=== PATIENT | female | born 2000 | race Caucasian/White ===

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

== ENCOUNTER 2019-07-19 18:38 | Emergency (ER) | payer SELFPAY ==
[~2019-07-19] VITALS: Ht 165.1 cm; Wt 63.6 kg
[2019-07-19 18:41] VITALS: BP 117/82
[2019-07-19] MEDS ORDERED: IBUPROFEN 600 MG TABLET PO ONE (19:15)
[2019-07-19] MEDS ORDERED: AMOXICILLIN TRIHYDRATE 250 MG CAPSULE PO ONE (19:15)
== END 2019-07-19 19:23 | disposition home or self-care (01) ==
LOC: EMS 18:39
DX: H66.92 Otitis media, unspecified, left ear (principal); J45.909 Unspecified asthma, uncomplicated; Z79.899 Other long term (current) drug therapy